=== PATIENT | male | born 1950 | race Caucasian/White ===

== ENCOUNTER → 2023-07-06 07:50 | Outpatient (REF) | payer MEDICARE, SELFPAY ==
[2023-07-06 08:19] LABS: % Basophils 0.7 % (0-2); % Eosinophils 4.2 % (0-6); % Immature Granulocytes 0.3 % (0-0.5); % Lymphocytes 49.5 % (20.5-51.1); % Monocytes 10.3 % (1.7-9.3); Absolute Basophils 0.1 10^3/uL (0-0.2); Absolute Eosinophils 0.4 10^3/uL (0-0.7); Absolute Lymphocytes 4.5 10^3/uL (1.2-3.4); Absolute Monocytes 0.9 10^3/uL (0.1-0.6); Absolute Neutrophils 3.2 10^3/uL (1.4-6.5); Hematocrit 41.6 % (39.0-52.0); Hemoglobin 14.5 g/dL (13.0-18.0); Mean Corp Hgb Conc. 34.9 g/dL (33.0-37.0); Mean Corpuscular Hgb 32.4 pg (27.0-31.0); Mean Corpuscular Volume 92.9 fL (80.0-94.0); Mean Platelet Volume 11.4 fL (7.4-10.4); Nucleated Red Blood Cells % 0 % (-); Platelet Count 196 10^3/uL (130-400); Red Blood Cell Count 4.48 10^6/uL (4.70-6.10); Red Cell Dist. Width 12.7 % (11.5-14.5)
[2023-07-06 08:48] LABS: ALT (SGPT) 33 U/L (0-50); AST (SGOT) 45 U/L (17-59); Alkaline Phosphatase 55 U/L (38-126); Blood Urea Nitrogen 13 mg/dl (9-20); Carbon Dioxide 27 mmol/L (22-30); Chloride 104 mmol/L (98-107); Glucose 110 mg/dl (70-99); HDL Cholesterol 48 mg/dl; LDL Cholesterol, Calculated 93 mg/dl; Potassium 4.4 mmol/L (3.5-5.1); Sodium 139 mmol/L (135-145); Total Bilirubin 1.3 mg/dl (0.2-1.3); Total Cholesterol 183 mg/dl (50-199); Triglyceride 211 mg/dl (10-149); Very Low Density Lipoprotein 42 mg/dl (0-30); eGFR > 60.00
[2023-07-06 08:59] LABS: Glycohemoglobin (HgbA1c) 5.8 % (4.0-5.6)
[2023-07-06 09:10] LABS: PSA, Total - Screen 1.74 ng/ml (0.0-4.0)
== END ==
LOC: REG 07:50
PROVIDERS: ATTENDING PHYSICIAN Nurse Practitioner Adult Health
DX: I10 Essential (primary) hypertension (principal); E78.00 Pure hypercholesterolemia, unspecified; R73.03 Prediabetes; Z12.5 Encounter for screening for malignant neoplasm of prostate
CPT/HCPCS: 36415; 80053; 80061; 83036; 85025; G0103

== ENCOUNTER → 2023-09-16 08:59 | Outpatient (REF) | payer MEDICARE, SELFPAY | LOC: RCS 08:59 | PROVIDERS: ATTENDING PHYSICIAN Internal Medicine Cardiovascular Disease; FAMILY PHYSICIAN Internal Medicine | DX: I35.0 Nonrheumatic aortic (valve) stenosis (principal) | CPT/HCPCS: 93306 ==

== ENCOUNTER → 2023-11-14 06:17 | Day surgery (SDC) | payer MEDICARE, SELFPAY | LOC: GI 06:17 | PROVIDERS: ATTENDING PHYSICIAN Internal Medicine | DX: Z12.11 Encounter for screening for malignant neoplasm of colon (principal); D12.3 Benign neoplasm of transverse colon; D12.5 Benign neoplasm of sigmoid colon; K63.5 Polyp of colon; K57.30 Diverticulosis of large intestine without perforation or abscess without bleeding; K63.89 Other specified diseases of intestine; K64.8 Other hemorrhoids | CPT/HCPCS: 45385; 45380; 88305 ==

== ENCOUNTER → 2024-01-04 08:14 | Outpatient (REF) | payer MEDICARE, SELFPAY | LOC: RCS 08:14 | PROVIDERS: ATTENDING PHYSICIAN Internal Medicine Cardiovascular Disease; FAMILY PHYSICIAN Internal Medicine | DX: I35.0 Nonrheumatic aortic (valve) stenosis (principal) | CPT/HCPCS: 93306 ==

== ENCOUNTER → 2024-01-11 07:44 | Outpatient (REF) | payer MEDICARE, SELFPAY ==
[2024-01-11 10:51] LABS: Glycohemoglobin (HgbA1c) 5.8 % (4.0-5.6)
[2024-01-11 10:54] LABS: ALT (SGPT) 34 U/L (0-50); AST (SGOT) 53 U/L (17-59); Albumin 4.5 g/dl (3.5-5.0); Alkaline Phosphatase 60 U/L (38-126); Blood Urea Nitrogen 11 mg/dl (9-20); Calcium 10.1 mg/dl (8.4-10.2); Carbon Dioxide 27 mmol/L (22-30); Chloride 106 mmol/L (98-107); Glucose 102 mg/dl (70-99); HDL Cholesterol 43 mg/dl; LDL Cholesterol, Calculated 96 mg/dl; Potassium 4.4 mmol/L (3.5-5.1); Sodium 144 mmol/L (135-145); Total Bilirubin 1.8 mg/dl (0.2-1.3); Total Cholesterol 187 mg/dl (50-199); Total Protein 7.4 g/dl (6.3-8.2); Triglyceride 244 mg/dl (10-149); Very Low Density Lipoprotein 48 mg/dl (0-30); eGFR > 60.00
== END ==
LOC: REG 07:44
PROVIDERS: ATTENDING PHYSICIAN Nurse Practitioner Adult Health
DX: I10 Essential (primary) hypertension (principal); E78.00 Pure hypercholesterolemia, unspecified; R73.03 Prediabetes
CPT/HCPCS: 36415; 80053; 80061; 83036

== ENCOUNTER → 2024-03-26 14:05 | Outpatient (REF) | payer MEDICARE, SELFPAY | LOC: RAD 14:05 | PROVIDERS: ATTENDING PHYSICIAN Nurse Practitioner Adult Health; FAMILY PHYSICIAN Internal Medicine | DX: M25.561 Pain in right knee (principal) | CPT/HCPCS: 73564 ==

== ENCOUNTER 2024-04-13 09:49 | Outpatient (RCR) | payer MEDICARE, SELFPAY | END 2024-04-13 23:59 | disposition home or self-care (01) | LOC: RPT 09:49 | PROVIDERS: ATTENDING PHYSICIAN Nurse Practitioner Adult Health | DX: M25.561 Pain in right knee (principal); Z73.6 Limitation of activities due to disability | CPT/HCPCS: 97110; 97112; 97140; 97162 ==

== ENCOUNTER 2024-04-27 09:54 | Outpatient (RCR) | payer MEDICARE, SELFPAY | END 2024-04-27 11:24 | disposition home or self-care (01) | LOC: RPT 09:54 | PROVIDERS: ATTENDING PHYSICIAN Nurse Practitioner Adult Health | DX: M25.561 Pain in right knee (principal); Z73.6 Limitation of activities due to disability | CPT/HCPCS: 97110; 97112 ==

== ENCOUNTER → 2024-07-09 07:48 | Outpatient (REF) | payer MEDICARE, SELFPAY ==
[2024-07-09 08:39] LABS: % Basophils 0.7 % (0-2); % Eosinophils 3.5 % (0-6); % Immature Granulocytes 0.3 % (0-0.5); % Monocytes 11.9 % (1.7-9.3); % Neutrophils 37.6 % (42.2-75.2); Absolute Basophils 0.1 10^3/uL (0-0.2); Absolute Eosinophils 0.4 10^3/uL (0-0.7); Absolute Lymphocytes 4.9 10^3/uL (1.2-3.4); Absolute Monocytes 1.3 10^3/uL (0.1-0.6); Hematocrit 42.6 % (39.0-52.0); Hemoglobin 14.4 g/dL (13.0-18.0); Mean Corp Hgb Conc. 33.8 g/dL (33.0-37.0); Mean Corpuscular Hgb 31.6 pg (27.0-31.0); Mean Corpuscular Volume 93.4 fL (80.0-94.0); Mean Platelet Volume 11.3 fL (7.4-10.4); Nucleated Red Blood Cells % 0 % (-); Platelet Count 199 10^3/uL (130-400); Red Blood Cell Count 4.56 10^6/uL (4.70-6.10); Red Cell Dist. Width 12.8 % (11.5-14.5); White Blood Cell Count 10.7 10^3/uL (4.8-10.8)
[2024-07-09 09:15] LABS: ALT (SGPT) 38 U/L (0-50); AST (SGOT) 49 U/L (17-59); Albumin 4.4 g/dl (3.5-5.0); Alkaline Phosphatase 70 U/L (38-126); Blood Urea Nitrogen 15 mg/dl (9-20); Carbon Dioxide 24 mmol/L (22-30); Chloride 106 mmol/L (98-107); Glucose 112 mg/dl (70-99); HDL Cholesterol 47 mg/dl; LDL Cholesterol, Calculated 104 mg/dl; Potassium 4.3 mmol/L (3.5-5.1); Sodium 141 mmol/L (135-145); Total Bilirubin 1.4 mg/dl (0.2-1.3); Total Cholesterol 197 mg/dl (50-199); Total Protein 7.4 g/dl (6.3-8.2); Triglyceride 231 mg/dl (10-149); Very Low Density Lipoprotein 46 mg/dl (0-30); eGFR > 60.00
[2024-07-09 09:45] LABS: PSA, Total - Screen 1.94 ng/ml (0.0-4.0); TSH Reflex To Free T4 1.64 uIU/ml (0.47-4.68)
[2024-07-09 09:54] LABS: Glycohemoglobin (HgbA1c) 5.7 % (4.0-5.6)
== END ==
LOC: REG 07:48
PROVIDERS: ATTENDING PHYSICIAN Nurse Practitioner Adult Health; FAMILY PHYSICIAN Internal Medicine
DX: I10 Essential (primary) hypertension (principal); E78.00 Pure hypercholesterolemia, unspecified; R73.03 Prediabetes; Z12.5 Encounter for screening for malignant neoplasm of prostate; Z00.00 Encounter for general adult medical examination without abnormal findings
CPT/HCPCS: 36415; 80053; 80061; 83036; 84443; 85025; G0103

== ENCOUNTER → 2024-07-11 08:46 | Outpatient (REF) | payer MEDICARE, SELFPAY | LOC: RCS 08:46 | PROVIDERS: ATTENDING PHYSICIAN Internal Medicine Cardiovascular Disease; FAMILY PHYSICIAN Internal Medicine | DX: I35.0 Nonrheumatic aortic (valve) stenosis (principal) | CPT/HCPCS: 93306 ==

== ENCOUNTER 2024-07-27 07:38 | Day surgery (SDC) | payer MEDICARE, SELFPAY ==
--- NOTE | 2024-07-26 08:32 | CONSULT.STRU ---
Consultation
-
Date/Time Consultation Requested: 07/27/2024
Date/Time Consultation Performed: 07/27/2024
Requesting Provider: Barbara Dominguez MD
Performing Provider: JEOVANNY Corona
Reason for Consultation: /TAVR
Patient History
Physicians
Family Physician: Esdras Cullen MD
Outpatient General Manager Food: Ronn Hare MD
Primary General Manager Food: Ronn Hare MD
History of Present Illness
Mr. Castano is a very pleasant 73 yom with a past medical history significant for , HTN, hypercholesterolemia, tobacco use, and hypertriglyceridemia. His echocardiogram from 07/11/2024 is notable for EF 57% AV P/M 87/59, MANISH 0.8, Pk michael: 4.67, mild
, MAC with trace MR, trace TR, PAP 25-30. From a symptomatology standpoint, patient describes no symptoms. He denies TAVAREZ, dizziness, lightheadedness, chest pain, or edema. Mr. Castano states his activity is unchanged from one year ago. Discussed
the pathophysiology and treatment options of including SAVR and TAVR. Explained the evaluation process comprising of lab work, TAVR CT scan, CT surgery consult, dental clearance and a heart team discussion. TAVR booklet, prescriptions,
appointments, and contact information given to patient. Allowed for and answered questions at bedside.
Past Medical History
Past Medical History: HTN, Hypercholesterolemia, Valvular Disease (aortic stenosis) and Other (diverticulitis, tobacco abuse)
Past Surgical History
Past Surgical History: Abdominal (colon resection) and Appendectomy
Dental History
Dr. Clark DDS. Patient states he is up to date.
Family History
Mother: N/A
Father: N/A
Social History
Alcohol: Occasional
Drug: None
Tobacco: Smoker
Allergies
Allergy/AdvReac Type Severity Reaction Status Date / Time
NKA - No Known Allergies Allergy Unknown Unknown Uncoded 03/08/14 22:50
Home Medications
�Medication �Instructions �Recorded �Confirmed �Type
lisinopril 20 mg tablet 20 mg PO DAILY 03/08/14 03/02/22 History
acetaminophen 650 mg 1,300 mg PO QPM 03/02/22 03/02/22 History
tablet,extended release
eebzhjjb-cl-uhdzz 300 mcg-K 60 1 tab PO DAILY 03/02/22 03/02/22 History
mcg-lycop 600 mcg-lutein 300 mcg
tablet (Centrum Silver Men)
omega-3 fatty acids 1 cap PO BID 03/02/22 03/02/22 History
sildenafil (pulm.hypertension) 20 20 mg PO QPM 03/02/22 03/02/22 History
mg tablet
STS%
STS %: 1.12
Review of Systems
-
History Source: Patient
General: Reports No Symptoms
HEENT: Reports No Symptoms
Respiratory: Reports No Symptoms
Cardiac: Reports No Symptoms
Abdomen/GI: Reports No Symptoms
: Reports No Symptoms
Musculoskeletal: Reports No Symptoms
Skin: Reports No Symptoms
Neurological: Reports No Symptoms
Vascular: Reports No Symptoms
Physical Exam
Labs
07/09/2024
HH: 14.4/42.6
BUN/Creatinine: 15/1.0
GFR >60
Diagnostic Studies
ECHOCARDIOGRAM 07/11/2024:
CONCLUSIONS
Normal left ventricular size and systolic function. No regional wall motion
abnormalities are seen. LV ejection fraction is 57% by Perera's method of
discs. Moderate concentric left ventricular hypertrophy.
Normal right ventricular size and function.
Trace mitral regurgitation.
Severe aortic stenosis. Peak/mean gradients across the aortic valve are 87/59.
The aortic valve by the Continuity equation is calculated at .8 cm. Mild
aortic regurgitation.
Trace tricuspid regurgitation. Estimated pulmonary artery pressure of 25-30
mmHg assuming a right atrial pressure of 3 mmHg.
Compared to prior study 01/04/2020 4 aortic valve gradients have increased
further from prior peak/mean 78/51 mmHg to now 87/59 mmHg.
Procedure Type:�Isolated AVR
Perioperative Outcome Estimate %
Operative Mortality 1.12%
Morbidity & Mortality 6.96%
Stroke 0.858%
Renal Failure 1.24%
Reoperation 3.29%
Prolonged Ventilation 3.27%
Deep Sternal Wound Infection 0.087%
Long Hospital Stay (>14 days) 2.27%
Short Hospital Stay (<6 days)* 63.3%
Exam
General: Well Developed, Well Nourished, No Apparent Distress and Comfortable
HEENT: Normocephalic
Neck: Trachea Midline
Respiratory: Clear
Cardiac: Regular Rhythm and Murmur (III/ stew)
GI: Soft and Non Tender
Rectal: Deferred by Provider
Skin: Warm and Dry
Neuro: Awake, Alert and AO x 3
Psych: Calm
Assessment / Plan
-
Aortic stenosis
Continue TAVR evaluation
Trend creatinine after contrast administration (Rx given)
TAVR CT scan (08/09)
CT surgical consult (MPT 08/14)
KCCQ12 and frailty testing at consult
Dental clearance
Continue aspirin
Heart team discussion
Data Reviewed
-
EKG: Tracing Personally Visualized and interpreted (NSR )
Vehicle Trimmer: Discussed with Physician
Echo: Report Reviewed by me and Discussed with Physician
Labs: Labs Reviewed by me
Old Records: Reviewed (Dr. Hare's office note)
Total Time Spent with Patient (in minutes): 45
[2024-07-27] VITALS (13 sets, daily range): BP systolic 106–133; BP diastolic 48–82; BMI 28.7
--- NOTE | 2024-07-27 16:41 | ITS.CL.CATH ---
Vehicle Detailer - Catheterization
Cardiac Catheterization
Procedure Report:
LEFT HEART CATHETERIZATION
Date of Procedure: July 27, 2024
Referring: Ronn Hare MD
PROCEDURES:
1. Coronary angiogram.
2. Right heart catheterization.
3. Ultrasound-guided access.
4. Moderate sedation
INDICATION: Pre-TAVR
ACCESS:
1. Right radial artery, 6 Turkish sheath, under ultrasound guidance
2. Right brachial vein, 6 Turkish sheath, under ultrasound guidance
Ultrasound was utilized for vascular access. The radial artery and brachial vein were visualized under ultrasound, and the vessel was patent and the artery pulsatile. The images were stored permanently in the patient's medical record. Under
direct ultrasound guidance, 6 Turkish sheaths were inserted into the artery and the vein, respectively using a micropuncture kit through a modified Seldinger technique.
HEMODYNAMICS : (mmHg)
RA (m) : 10
RV (s/d,m) : 27/7, 11
PA (s/d, m) : 31/15, 21
PCWP (m) : 13
PA saturation: 69.3% on room air
AO saturation: 95.5% on room air
SVC saturation: 72% on room air
Cardiac Output : 5.41 L/min
Cardiac Index : 2.59 L/min/m-2
Systemic vascular resistance: 1049 dsc^(-5)
Pulmonary vascular resistance: 1.48 khalil unit
Heart rate: 88 bpm
AO (s/d) : 114/69
CORONARY FINDINGS: Moderate to severely tortuous coronary arteries.
DOMINANCE: Right
LEFT MAIN: The left main artery is a large-caliber vessel which gives rise to the left anterior descending artery and the left circumflex artery. There is minimal luminal irregularities.
LEFT ANTERIOR DESCENDING: The left anterior descending artery is a large-caliber vessel which gives rise to 1 major diagonal branch as it courses to the anterior interventricular groove towards the apex. There is minimal luminal irregularities.
CIRCUMFLEX: Left circumflex artery is a large-caliber vessel which gives rise to 1 major large caliber obtuse marginal branch and the left posterolateral branch. There is minimal luminal irregularities.
RIGHT CORONARY ARTERY: The right coronary artery is a medium caliber dominant vessel which is rise to the right posterior descending artery. It is moderately tortuous with minimal luminal irregularities.
SEDATION: 21 minutes of procedural sedation was utilized. An independent medical policy specialist was present to assist with and help manage the patient's level of consciousness and physiologic status.
RADIATION SUMMARY: Fluoro Time (min): 3.1, Dose (mGy): 349.03, DAP (Gy.cm2) : 26.97
Closure Device: Vascular band over right radial artery, 10 cc of air. Manual pressure was held over the right brachial venous access site with successful hemostasis.
CONCLUSIONS
1. Moderate to severely tortuous coronary arteries.
2. No obstructive coronary artery disease.
3. Mildly elevated right-sided filling pressures with normal PCWP and normal cardiac output.
4. Known severe to critical aortic stenosis with mean transaortic gradient of 59 mmHg on most recent echocardiogram.
RECOMMENDATIONS
1. Proceed with workup for TAVR versus SAVR by pursuing a CT angiogram of chest, abdomen and pelvis per TAVR protocol CT surgery consult followed by discussion and review of data at the structural heart meeting.
2. Continued aggressive management of cardiovascular risk factors.
3. Wean radial band per protocol.
Copy to: Ronn Hare MD
Barbara Dominguez MD, [facility], [facility]
== END 2024-07-27 12:45 | disposition home or self-care (01) ==
LOC: CATH 07:38
PROVIDERS: ATTENDING PHYSICIAN Internal Medicine Interventional Cardiology; FAMILY PHYSICIAN Internal Medicine; OTHER PHYSICIAN Internal Medicine Cardiovascular Disease
DX: I35.0 Nonrheumatic aortic (valve) stenosis (principal); E78.2 Mixed hyperlipidemia; I11.9 Hypertensive heart disease without heart failure; F17.210 Nicotine dependence, cigarettes, uncomplicated; Z90.49 Acquired absence of other specified parts of digestive tract; E78.1 Pure hyperglyceridemia
CPT/HCPCS: 99152; 76937; 93456; C1894; Q9967

== ENCOUNTER → 2024-08-02 09:32 | Outpatient (REF) | payer MEDICARE, SELFPAY ==
[2024-08-02 11:50] LABS: Blood Urea Nitrogen 14 mg/dl (9-20); Calcium 10.1 mg/dl (8.4-10.2); Carbon Dioxide 27 mmol/L (22-30); Chloride 103 mmol/L (98-107); Glucose 165 mg/dl (70-99); Potassium 4.6 mmol/L (3.5-5.1); Sodium 140 mmol/L (135-145); eGFR > 60.00
== END ==
LOC: REG 09:32
PROVIDERS: ATTENDING PHYSICIAN Nurse Practitioner Acute Care; FAMILY PHYSICIAN Internal Medicine
DX: I35.0 Nonrheumatic aortic (valve) stenosis (principal)
CPT/HCPCS: 36415; 80048

== ENCOUNTER → 2024-08-09 09:29 | Outpatient (REF) | payer MEDICARE, SELFPAY | LOC: RAD 09:29 | PROVIDERS: ATTENDING PHYSICIAN Nurse Practitioner Acute Care; FAMILY PHYSICIAN Internal Medicine | DX: I35.0 Nonrheumatic aortic (valve) stenosis (principal) | CPT/HCPCS: 74174; 75572; Q9967 ==

== ENCOUNTER → 2024-08-21 13:07 | Outpatient (REF) | payer MEDICARE, SELFPAY | LOC: RAD 13:07 | PROVIDERS: ATTENDING PHYSICIAN Nurse Practitioner Adult Health | DX: I35.0 Nonrheumatic aortic (valve) stenosis (principal) | CPT/HCPCS: 75572; Q9967 ==

== ENCOUNTER 2024-10-11 07:35 | Inpatient (IN) | payer MEDICARE, SELFPAY ==
[2024-10-03 08:50] VITALS: BMI 30.5
[2024-10-03 09:10] LABS: % Basophils 0.6 % (0-2); % Eosinophils 3.8 % (0-6); % Immature Granulocytes 0.3 % (0-0.5); % Lymphocytes 43.6 % (20.5-51.1); % Monocytes 11.6 % (1.7-9.3); % Neutrophils 40.1 % (42.2-75.2); Absolute Basophils 0.1 10^3/uL (0-0.2); Absolute Eosinophils 0.3 10^3/uL (0-0.7); Absolute Lymphocytes 3.8 10^3/uL (1.2-3.4); Absolute Neutrophils 3.5 10^3/uL (1.4-6.5); Hematocrit 41.8 % (39.0-52.0); Hemoglobin 14.2 g/dL (13.0-18.0); Mean Corpuscular Hgb 31.1 pg (27.0-31.0); Mean Corpuscular Volume 91.7 fL (80.0-94.0); Mean Platelet Volume 11.7 fL (7.4-10.4); Nucleated Red Blood Cells % 0 % (-); Platelet Count 172 10^3/uL (130-400); Red Blood Cell Count 4.56 10^6/uL (4.70-6.10); Red Cell Dist. Width 13.9 % (11.5-14.5); White Blood Cell Count 8.7 10^3/uL (4.8-10.8)
[2024-10-03 09:11] LABS: Urine Albumin 1+ (Neg - Trace); Urine Bilirubin Negative (Negative); Urine Character Clear (Clear); Urine Color Yellow; Urine Glucose Negative (Negative); Urine Ketone Negative (Negative); Urine Leukocyte Negative (Negative); Urine Nitrite Negative (Negative); Urine Occult Blood 1+ (Negative); Urine Urobilinogen Negative (Neg - 1+)
[2024-10-03 09:19] LABS: INR 1.02; PT 13.9 Sec (11.4-14.6)
[2024-10-03 09:20] LABS: APTT 28.9 Sec (23.4-35.0)
[2024-10-03 09:22] LABS: Urine Bacteria Few (Negative); Urine Mucus Few; Urine Red Blood Cell 0-2 /HPF (0-2); Urine Squamous Cell 0-2 /LPF (Few)
[2024-10-03 09:42] LABS: NT-proBNP 91.6 pg/ml
[2024-10-03 10:01] LABS: ALT (SGPT) 47 U/L (0-50); AST (SGOT) 74 U/L (17-59); Albumin 4.3 g/dl (3.5-5.0); Alkaline Phosphatase 62 U/L (38-126); Blood Urea Nitrogen 15 mg/dl (9-20); Calcium 9.4 mg/dl (8.4-10.2); Carbon Dioxide 23 mmol/L (22-30); Chloride 113 mmol/L (98-107); Direct Bilirubin 0.3 mg/dl (0.0-0.4); Estimated Creatinine Clearance 72 ml/min; Glucose 101 mg/dl (70-99); Potassium 4.6 mmol/L (3.5-5.1); Sodium 142 mmol/L (135-145); Total Protein 7.5 g/dl (6.3-8.2); eGFR > 60.00
--- NOTE | 2024-10-03 10:05 | CM ---
Met with Mr. ad Mrs. Castano in [facility]. He states prior to admission he resides with his spouse in a two story home with one step to enter. He states he has a full flight of steps to get to bedroom/full bathroom. He states he has a powder room on the
first floor. He states prior to admission he was independent with ambulation and adls. He states he does not have any DME in the home. He states he has a prescription plan and uses [facility].His spouse states she will be home to assist in his
care if needed. The discharge plan is to return home with his spouse and a home visit by the Transitional Care Nurse when medically stable.
We reviewed pre-op and post-op routines. We reviewed the shower instructions. He has the soap and the written instructions. He already has the TAVR Educational Booklet. We also reviewed restrictions including lifting and driving restrictions.
We discussed a home visit by the Transitional Care Nurse. He is agreeable to a home visit. The plan is for TAVR on September.
[2024-10-03 11:20] LABS: Glycohemoglobin (HgbA1c) 5.8 % (4.0-5.6)
--- NOTE | 2024-10-03 15:33 | HPS.HSE ---
Family Physician
-
Family Physician: Esdras Cullen
Cardiology: Ronn Hare
Chief Complaint
-
Pre-operative history and physical
History of Present Illness
Mr. Castano is a very pleasant 73 yom with a past medical history significant for , HTN, hypercholesterolemia, tobacco use, and hypertriglyceridemia. His echocardiogram from 07/11/2024 is notable for EF 57% AV P/M 87/59, MANISH 0.8, Pk michael: 4.67, mild
, MAC with trace MR, trace TR, PAP 25-30. From a symptomatology standpoint, patient describes no symptoms. He denies TAVAREZ, dizziness, lightheadedness, chest pain, or edema. However, his states she has noticed that he is SOB after climbing
stairs. Patient also states he takes naps during the day and his has noticed he has been napping more frequently. Mr. Castano states his activity is unchanged from one year ago.
Reviewed risks of TAVR including PPM, bleeding and stroke. Allowed for and answered questions. Patient to be a 0730 arrival on 10/11. He will continue his aspirin including taking the morning of his TAVR. He will hold his fish oil starting now. He is
aware he will receive a call next Tue. to confirm arrival time and answer any questions.
Medical History
Past Medical History
Past Medical History: Reports HTN, Valvular Disease (Bicuspid AV) and Other (diverticulitis, BCC left LE, pre-diabetic)
Past Surgical History: Reports Appendectomy and Other (colon resection)
Social History
Tobacco: Smoker
Alcohol: Occasional
Drug: None
Personal:
Living: With Family
Employment: Retired
Family History
Family History: Not pertinent
Allergies / Home Medications
Allergies reflects when Allergies were last updated in [facility].
Home Medications with original date entered in [facility]
Allergy/Medication List:
Allergies:
shellfish - nausea/vomitting
Medications:
Aspirin 81(Aspirin) 81 MG Tablet Chewable 1 tablet Orally Once a day.
Fish Oil 1000 MG Capsule 1 capsule Orally Twice a day.
Lisinopril 20 MG Tablet TAKE 1 TABLET ONCE DAILY.Multiple Vitamin Tablet 1 tablet Orally Once a day.
Sildenafil Citrate 20 MG Tablet TAKE 1 TABLET BY MOUTH EVERY DAY NEEDED.
Tylenol Arthritis Pain.
Valtrex(valACYclovir HCl) 1 GM Tablet 2 tablets prn Orally twice a day x one day.
Review of Systems
-
History Source: Patient
Constitutional: Reports No Symptoms
EENT: Reports No Symptoms
Respiratory: Reports No Symptoms
Cardiac: Reports No Symptoms
Abdomen/GI: Reports No Symptoms
: Reports No Symptoms
Musculoskeletal: Reports No Symptoms
Skin: Reports No Symptoms
Neurological: Reports No Symptoms
Endocrine: Reports No Symptoms
Hematologic/Lymphatic: Reports No Symptoms
Psych: Reports No Symptoms
Physical Exam
Physical Exam
General: Well Developed, Well Nourished and No Apparent Distress
HEENT: NormoCephalic and PERRLA
Respiratory: Clear
Cardiac: S1/S2, Irregular Rhythm and Murmur (Grade II/ TAYLER); No Peripheral Edema
Breast: Deferred by me
GI: Soft, Non Tender, Non Distended and Normal Bowel Sounds
Rectal: Deferred by Provider
Genito-urinary: Deferred by me
Musculoskeletal: No Edema and Normal Gait & Station
Skin: Warm and Dry
Neuro: AO x 3 and Nonfocal/grossly intact
Psych: Calm
Laboratory Results
-
10/03/24 08:43
10/03/24 08:43
Laboratory Results
PT 13.9 Sec (11.4-14.6) 10/03/24 08:43
INR 1.02 10/03/24 08:43
APTT 28.9 Sec (23.4-35.0) 10/03/24 08:43
Total Bilirubin 2.0 mg/dl (0.2-1.3) H 10/03/24 08:43
AST 74 U/L (17-59) H 10/03/24 08:43
ALT 47 U/L (0-50) 10/03/24 08:43
Alkaline Phosphatase 62 U/L (38-126) 10/03/24 08:43
Data Reviewed
-
Diagnostic Radiology: Report Reviewed by me
CT Scan: Report Reviewed by me and Discussed with Physician
Medical Tests (Nuc Med, Echo, EKG etc): Report Reviewed by me
Lab Data: Labs Reviewed by me
Old Records: Reviewed
Impression/Plan
-
IMPRESSION:
Severe Aortic Stenosis
PLAN:
-Proceed with TAVR utilizing a 26mm S3 Resilia Valve via transfemoral access
-POD #06/14 echocardiogram
-Cardiac rehab consult
-Continue ASA daily
[2024-10-11] VITALS (24 sets, daily range): BP systolic 90–142; BP diastolic 50–85
--- NOTE | 2024-10-11 09:13 | W.CVOR.SURPR ---
CVOR Surgeon Immed Pre Op
-
I have examined this patient prior to performance of the scheduled procedure.
The patient's condition is unchanged from the time of the dictated/written History and
Physical and the patient is able to undergo the scheduled procedure.
--- NOTE | 2024-10-11 11:25 | CM ---
Chart reviewed. Patient is in the OR today. Patient is independent of ADLS, lives with his in a 2 STH, 1 BRYANT, 0 DME. Plan is for the patient to return home with CT Transitional RN. CM to follow
--- NOTE | 2024-10-11 11:28 | W.IMMPOSTOP ---
Surgical Immed Post Op Note
-
[id number]
STRUCTURAL HEART PROCEDURE NOTE: TAVR
Preoperative Dx:
Severe aortic stenosis (P/M: 87/59; MANISH 0.8, Creative Perfumer 4.67)
HTN
BCC of left LE
Diverticulitis w/ Hx of colon resection 1999
Appendectomy
Postoperative Dx:
Same
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
Procedures:
1) L TRAIN PLANNER access w/ tactile, U/S, and fluoroscopic guidance, micropuncture technique, limited angiography, 6Fr sheath placement
2) L CFV access w/ U/S and fluoroscopic guidance, long 6Fr sheath placement
3) R TRAIN PLANNER access w/ tactile, U/S, and fluoroscopic guidance, micropuncture technique, limited angiography, 6Fr sheath placement
4) Placement of temporary RV pacing wire, threshold testing
5) Placement of pigtail catheter in RCC w/ limited aortography x 2 w/ confirmation of co-planar valve deployment angles
6) Placement of perclose sutures x 2 into R TRAIN PLANNER; 8Fr sheath placement
7) Placement of Argueta E-sheath via R TRAIN PLANNER (systemic heparinization)
8) Wire purchase across stenotic AV (AL-1, soft-tip straight, LVEDP assessment, extra-stiff wire)
9) R TF TAVR w/ placement of 26mm FLO 3 valve
10) Completion aortography (90/10; no AI)
11) Completion TTE (mean gradient 9mmHg, no AI/PVL)
12) Removal of valve delivery system & Argueta E-sheath w/ R TRAIN PLANNER mgmt w/ perclose sutures x 2; manual pressure
13) Completion R ileofemoral angiography
14) Removal of temporary pacing wire
15) Removal of L TRAIN PLANNER 6Fr sheath w/ mgmt w/ 6Fr angioseal; manual pressure (protamine)
16) Removal of L CFV 6Fr sheath w/ mgmt w/ manual pressure
Coordinate Measuring Equipment Operator:
Dr. Arnaldo Carrillo
Cardiac Surgeon:
Dr. Choco Hermosillo
Anesthesia:
MAC & local to B/L groins
Implants:
Argueta Lifesciences, FLO 3, 26mm RESILIA valve; [id number]
Perclose x 2 to R TRAIN PLANNER
6Fr angioseal x 1 to L TRAIN PLANNER
Complications:
None
Transient BBB - resolved spontaneously
Cath Data:
Start 1028hrs, Deploy: 1109hrs, End: 1125hrs
FT: 7.9min, mGy: 640.10, DAP: 59.0450, Contrast: 118
Post-TTE: no AI/PVL, mean gradient 9mmHg
Condition:
Stable/guarded to recovery
--- NOTE | 2024-10-11 12:12 | W.PN.UPDATE ---
Update Note
Progress Note Update
Reviewed Mr. Castano with the heart team in the preTAVR SDM meeting and confirmed a 26mm S3 via right transfemoral access. Patient will resume aspirin post TAVR. LVEDP 28mmHg. #26mmS3 (serial# [id number]) successfully deployed via right transfemoral
access. Post implant MG 9mmHg.
[2024-10-11 12:59] LABS: ACT-LR - POC > 397 Seconds (116-155)
--- NOTE | 2024-10-11 14:23 | PTCARENOTE ---
Received the patient from PACU at 1310 after TAVR procedure. Patient is AAO, lying flat in bed, aware that he must maintain this position until 1530. Bilateral groin dressings are dry and intact with strong pedal pulses. IV levophed is infusing at
2mcg/min, monitoring VS, BP remains > 90. Neuro status is within normal limits. SR on the monitor, with 1st degree HB and occasional PVC's. is at the bedside, call monterroso in reach.
--- NOTE | 2024-10-11 15:23 | ITS.CL.TAVR ---
Medical Office Supervisor - TAVR Report
TAVR PRocedure
Procedure Report:
TRANSCATHETER AORTIC VALVE REPLACEMENT
Date of Procedure: October 11, 2024
Referring: Dr. Ronn Hare
Operators: Drs. Arnaldo Carrillo and Choco Hermosillo
PROCEDURE PERFORMED:
1. Ultrasound guidance was utilized to gain access in the left common femoral vein, left common femoral artery, and right common femoral artery
2. Successful placement of 26 mm Argueta Linda S3 aortic valve via right common femoral approach.
PREPROCEDURE NYHA CLASS: 3
DESCRIPTION OF PROCEDURE: The patient was referred for assessment of severe symptomatic aortic stenosis and following a comprehensive evaluation it was felt that transcatheter aortic valve replacement (TAVR) would be the most appropriate treatment.
Informed consent was obtained prior to the procedure. A 'time-out' was called and the procedural plan was verbally confirmed by anesthesia, surgery, perfusion, and tag and label cutter staff.
Arterial was obtained in the left common femoral artery using ultrasound guidance and micropuncture technique. A 6 Fr sheath was inserted. Ultrasound guidance was then utilized to gain access into the left common femoral vein and a 6 Fr sheath was
inserted. Attention was then turned to the right common femoral artery. Ultrasound guidance was utilized and access was obtained in the right common femoral artery using ultrasound guidance. Angiography through the micropuncture sheath revealed
appropriate positioning of both the right and left common femoral arteriotomy sites.
A transvenous pacemaker wire was then advanced from the left common femoral vein to the right ventricular apex where excellent pacing thresholds were obtained.
An angled pigtail catheter was then advanced through the left common femoral sheath and positioned in the proximal ascending thoracic aorta / right coronary cusp. Angiography was performed to define a coplanar angle facilitating positioning and
delivery of the TAVR device. PIEDRA 4/CAU 18 appear to be a reasonable coplanar angle.
Pre-closure of the right femoral arteriotomy was then performed using 2 Perclose devices and was followed by placement of an 8 Fr arterial sheath.
An AL-1 catheter was then advanced to the proximal descending thoracic aorta over 0.035' J-tipped guidewire. An Amplatz Extra-Stiff wire was then advanced through the AL-1 catheter to the proximal descending thoracic aorta. The AL-1 catheter was
removed and the supportive wire was utilized to facilitate delivery of the Argueta eSheath and dilator. Heparin, 7500 units, was administered and the ACT was monitored throughout the procedure.
The AL-1 catheter was then readvanced through the Argueta eSheath. The 0.035' stiff wire was allowed to drift across the aortic arch and the AL1 was positioned just above the aortic valve. The stenotic leaflets were probed with a Soft-tip Straight
wire. The aortic leaflets were crossed and the AL-1 catheter followed the Soft-tip Straight wire to the mid left ventricle. The wire was removed. Left ventricular end-diastolic pressures was measured at 26 mmHg.
An Amplatz Extra-Stiff wire with a generous curved tip was then advanced to the mid left ventricle. The AL-1 catheter was removed and the Amplatz wire was left in place in order to facilitate delivery of the Argueta delivery system. A 26 mm
Argueta LINDA S3 valve was brought to the table and the orientation of the valve on the balloon delivery system was confirmed by all operators. The LINDA S3 valve was advanced through the eSheath and into the proximal descending thoracic aorta.
The LINDA valve was centered on the delivery balloon and the entire system was retroflexed as across the aortic arch in an FRENCH projection. The LINDA S3 delivery system was then advanced across the stenotic aortic leaflets. The pusher was
retracted. Angiography confirmed appropriate positioning of the valve and rapid pacing was undertaken. The 26 mm LINDA S3 valve was deployed during rapid pacing. Valve deployment was uneventful. Aortography following valve deployment suggested
no aortic insufficiency while the wire was still across the valve in the left ventricle.
The post valve deployment transthoracic echocardiogram was notable for a mean gradient of 9 mmHg.
The Argueta valve delivery system was removed. The Argueta eSheath was removed and the Perclose knots were advanced to the arteriotomy site with excellent hemostasis. Angiography after the Perclose knots were advanced to the arteriotomy site and
demonstrated good distal runoff.
A 6 Kiswahili Angio-Seal was then utilized to obtain hemostasis in the left common femoral artery. The temporary pacemaker and 6 Fr sheath were removed and manual pressure was held over the 6 Kiswahili femoral venous access.
Protamine was administered to reverse the intravenous anticoagulant.
Fluoro Time: 7.9 min, Dose: 640 mGy, DAP : 59.0 Gy.cm2
CONCLUSIONS:
1. Severe symptomatic aortic stenosis. Successful deployment of a 26 mm LINDA S3 valve with no aortic insufficiency and a mean gradient post valve deployment of 9 mmHg
2. The right arteriotomy was closed with 2 Perclose devices and left arteriotomy site was closed with a 6 Fr Angio-Seal
Copy to: Dr. Ronn Hare
[2024-10-11] MEDS: ANCEF 5 IV (17:36)
[2024-10-11] MEDS: ANCEF 10 IV ×2 (17:36)
[2024-10-11] MEDS: FLUSH (NSS) 1 FLUSH IV (17:37)
--- NOTE | 2024-10-12 01:29 | PTCARENOTE ---
Assumed care of the pt @ 1900. Pt is AAOx3 SR with freq PVC's on the monitor. VSS b/l groin dressing c/d/i call monterroso within reach.
[2024-10-12 03:28] VITALS: BP 116/52
--- NOTE | 2024-10-12 03:36 | W.PN.CT ---
Today's Communication / Plan
-
- POD#1
-no issues overnight
-resume ASA
-review EKG with Cardiology
-obtain echo today
-discharge planning
Assessment / Plan
-
s/p R TF TAVR w/ placement of 26mm FLO 3 valve POD#1
-
-HTN
-hypercholesterolemia, hypertriglyceridemia
-tobacco use
-diverticulitis
-BCC left LE
-pre-diabetic
Subjective
Procedure
s/p R TF TAVR w/ placement of 26mm FLO 3 valve on 10/11/[address] Hermosillo
-
Date of Service: October 12, 2024
Objective Data
-
Lab Results
10/12/24 03:41
10/12/24 03:41
PT 13.9 Sec (11.4-14.6) 10/03/24 08:43
INR 1.02 10/03/24 08:43
APTT 28.9 Sec (23.4-35.0) 10/03/24 08:43
Vital Signs
Vital Signs
Temp Pulse Resp BP Pulse Ox
97.7 F 85 16 142/69 94
10/12/24 03:28 10/12/24 03:28 10/12/24 03:28 10/11/24 19:05 10/12/24 03:39
CT Intake/Output/Weight
10/11/24 10/11/24 10/12/24
06:59 18:59 06:59
Intake Total 240 / 240
Balance 240 / 240
SaO2: 94
Physical Exam
-
General: AOx3
Cardiovascular: Regular rate & rhythm
Respiratory: Clear
Incision: Dressing Intact
Extremities: No Edema
[2024-10-12 04:17] LABS: Hematocrit 41.2 % (39.0-52.0); Hemoglobin 14.2 g/dL (13.0-18.0); Mean Corp Hgb Conc. 34.5 g/dL (33.0-37.0); Mean Corpuscular Hgb 31.8 pg (27.0-31.0); Mean Corpuscular Volume 92.2 fL (80.0-94.0); Mean Platelet Volume 12.3 fL (7.4-10.4); Platelet Count 142 10^3/uL (130-400); Red Blood Cell Count 4.47 10^6/uL (4.70-6.10); Red Cell Dist. Width 13.2 % (11.5-14.5); White Blood Cell Count 14.1 10^3/uL (4.8-10.8)
[2024-10-12 04:39] LABS: Blood Urea Nitrogen 14 mg/dl (9-20); Calcium 9.5 mg/dl (8.4-10.2); Carbon Dioxide 26 mmol/L (22-30); Chloride 109 mmol/L (98-107); Estimated Creatinine Clearance 72 ml/min; Glucose 111 mg/dl (70-99); Magnesium 2.2 mg/dl (1.6-2.3); Potassium 4.8 mmol/L (3.5-5.1); Sodium 141 mmol/L (135-145); eGFR > 60.00
[2024-10-12 05:02] VITALS: BMI 30.5
[2024-10-12 05:27] LABS: Hepatitis C Antibody Negative (Negative)
[2024-10-12 07:31] VITALS: BP 136/63
--- NOTE | 2024-10-12 07:37 | W.DCSUMMARY ---
Discharge Summary
Discharge Data
Date of Admission: 10/11/24
Date of Discharge: 10/12/24
-
Pending Results: No
Hospital Course
Primary care physician: Esdras Cullen
Outpatient hat cutter: Ronn Hare
Inpatient consultants: [facility]
Procedures:
1. TAVR
Primary Diagnosis:
1. Bicuspid aortic valve with severe aortic stenosis
Secondary Diagnoses:
1. Diverticulitis s/p resection in 1999
2. Basal cell carcinoma of the left lower extremity
3. Hypertension
4. Pre-Diabetes (A1c)
5. Cirrhotic liver
6. Cholelithiasis
7. Tobacco abuse
8. Erectile dysfunction
HPI: 74-year-old male was electively admitted on 10/11/2024 for TAVR due to bicuspid aortic valve with aortic stenosis.
Hospital course: Patient underwent R TF TAVR #26mm FLO [address] Drs. Choco Hermosillo and Arnaldo Carrillo. Patient had no complications and returns to IVU in stable condition. Bilateral groin sites intact w/o erythema/hematoma. Morning ECG reported
sinus rhythm with occasional PVC. Chest x-ray recently without abnormality. TTE reported an EF of 60-65%, AV 19/9mmHg, no AI. HB 14.2 and creatinine 1.0 on day of discharge. Per cardiology, sildenafil is 'as needed' for ED, not pulmonary
hypertension.
Home medication changes:
Sildenafil prn, not daily
Discharge Plan
-
Patient Disposition: Home (Routine Discharge)
Discharge Diagnosis/Procedures: TAVR
Condition: Good
Diet: Low Cholesterol and Low Sodium
Activity: No strenuous activity
Driving Restrictions: No driving for 1 week
Bathing Restrictions: OK to Shower
Others Tests: Please call [facility] to schedule 30 day follow-up echocardiogram
Specialty Instructions: Weigh Daily- Call MD for wt gain/loss 3 lbs overnight/5 lbs in 1 week
Stand Alone Forms: DC Inst - TransFemoral (TAVR)
Referrals:
CT Transitional Care Nurse [Outside]
[facility]. Cardiac Rehab [Outside, Physical Medicine / Rehab] - 11/09/24 9:30 am
Referral Note: Cardiac Rehab Orientation appointment is on 11/09/2024 at 9:30 am
The Cardiac Rehab gym is located on the first floor of the [facility].
Lawson Cullen MD [Family Provider, Internal Medicine]
Karma Monreal CRNP [Specified Professional Personl, Cardiology] - 11/08/24 2:00 pm
Additional Discharge Medication Instructions: sildenafil is 'as needed'
Prescriptions:
Continued
acetaminophen 650 mg Tablet Extended Release
1,300 mg PO Q8H PRN (Reason: pain)
aspirin 81 mg Tablet
81 mg PO DAILY Qty: 0 0RF
Centrum Silver Men 300-600-300 mcg Tablet
1 tab PO DAILY Qty: 0 0RF
omega-3 fatty acids
1 cap PO DAILY Qty: 0 0RF
lisinopril 20 MG tablet
20 mg PO DAILY Qty: 0 0RF
Discontinued
sildenafil (pulm.hypertension) 20 mg Tablet
20 mg PO QPM
Discharge Orders:
Discharge Patient (As Directed); Ordered 10/12/24
Ordered By: Alba James
Care Plan Goals
Care Plan Goals:
Problem: Readiness for enhanced knowledge related to diagnosis and treatment plan
Goal: Understand your diagnosis and treatment plan needs, including medications if applicable.
Instructions: Know your diagnosis, underlying causes and treatment plan options, including medications if applicable. Consult with your health care team to learn about your diagnosis and treatment plan, including medications if applicable.
Discharge Date and Time
Print Language: JAPANESE
--- NOTE | 2024-10-12 07:41 | W.PN.CARDCBS ---
Addendum entered and electronically signed by Juliano Chambers MD 10/12/24 12:27:
I saw and examined the patient.
The Care Associate's note was reviewed and I agree with the note.
Comment: Briefly, 74-year-old man past medical history of severe aortic stenosis, PVCs, hypertension, hyperlipidemia who underwent TAVR 10/11/2024 for severe aortic stenosis
The patient was resting comfortably in the IVU this morning at the time my evaluation
Reports that he was ambulating the halls earlier today without significant symptoms
Telemetry shows sinus rhythm with PVCs
QRS duration is unchanged from baseline
Echo this a.m. with well-seated TAVR valve and no significant aortic regurgitation
Stable for discharge from my perspective
Discussed with patient's who was at bedside
Original Note:
Today's Communication / Plan
-
echo
ambulate
continue asa, lisinopril
likely for DC later today
Impression / Plan
-
Primary Travel Journalist: Dr. Hare
Assessment:
-Severe s/p R TF TAVR w/ placement of 26mm LINDA 3 valve 10/12/24
-PVCs/vent bigeminy
-HTN
-hypercholesterolemia/hypertriglyceridemia
-tobacco use
-diverticulitis s/p colon resection 1999
-BCC LLE
-pre-diabetic
ECHO 07/11/24: EF 57%, no RWMA, mod cLVH, trace MR, severe with peak/mean gradients 87/59mmHg, MANISH 0.8cm2, mild AR, trace TR, PAP 25-30mmHg
ECHO 10/11/24: EF 60-65%, s/p #26mm Linda 3 TAVR with peak/mean gradients 19/9mmHg, no AR
Plan:
-s/p R TF TAVR w/ placement of 26mm LINDA 3 valve 10/12/24
-hgb stable at 14.2. continue asa. B/L groin sites stable
-noted to have PVCs at times in pattern of vent bigeminy. upon review of last office EKG also with PVCs/bigeminy. patient asymptomatic. K/mag stable
-echo pending this AM
-BPs stable. continue OP lisinopril
-ambulate
-OP cardiac follow up arranged
-d/w nursing
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
Progress Note - Travel Journalist
Subjective
Date of Service: October 12, 2024
Denies chest pain, shortness of breath. Denies significant groin pain
Objective
Labs:
10/12/24 03:41
10/12/24 03:41
Labs
Hgb 14.2 g/dL (13.0-18.0) 10/12/24 03:41
Hct 41.2 % (39.0-52.0) 10/12/24 03:41
Plt Count 142 10^3/uL (130-400) 10/12/24 03:41
PT 13.9 Sec (11.4-14.6) 10/03/24 08:43
INR 1.02 10/03/24 08:43
APTT 28.9 Sec (23.4-35.0) 10/03/24 08:43
Sodium 141 mmol/L (135-145) 10/12/24 03:41
Potassium 4.8 mmol/L (3.5-5.1) 10/12/24 03:41
BUN 14 mg/dl (9-20) 10/12/24 03:41
Creatinine 1.0 mg/dL (0.7-1.3) 10/12/24 03:41
Glucose 111 mg/dl (70-99) H 10/12/24 03:41
Vital Signs and I&O:
Vital Signs
Temp Pulse Resp BP Pulse Ox
97.7 F 95 16 116/52 94
10/12/24 03:28 10/12/24 06:00 10/12/24 03:28 10/12/24 03:28 10/12/24 03:39
Vital Signs
Temp Pulse Resp BP Pulse Ox
97.7 F 95 16 116/52 94
10/12/24 03:28 10/12/24 06:00 10/12/24 03:28 10/12/24 03:28 10/12/24 03:39
Intake & Output
10/09/24 10/10/24 10/11/24 10/12/24
07:59 07:59 07:59 07:59
Intake Total 240 / 240
Balance 240 / 240
Physical Exam
Physical Exam
GEN: No distress, awake, alert, oriented x3
HEENT: supple, anicteric, mmm, eomi
LUNGS: CTA B/L, no wheezes
CV: Reg, S1/S2, no murmur
ABD: soft, BS+, NT/ND
EXT: No cyanosis, clubbing, edema
NEURO: Gross non-focal
SKIN: Warm, pink, dry. No rash. B/L groin sites c/d/i, NTTP, soft
[2024-10-12] MEDS: ZESTRIL 20 MG PO (09:22)
[2024-10-12] MEDS: LOW STRENGTH ASPIRIN 81 MG PO (09:22)
--- NOTE | 2024-10-12 10:05 | CM ---
Reviewed chart. Met with and Mrs. Castano to review discharge plans. He states he is feeling well and maybe able to go home soon. We reviewed a home visit by the Cardiothoracic Transitional Care Nurse. He is agreeable to home visit. Prior to
admission he resides with his spouse in a two story home with one steps to enter. He has a full flight of steps to get to bedroom/full bathroom. He has a powder room on the first floor. He states he has been ambulating in the room. Prior to
admission he was independent with ambulation and adls. He does not have any DME in the home. He has a prescription plan and uses [facility]. His spouse will be home to assist in his care if needed. Medical work-up in progress. The discharge
plan is to return home with his spouse and a home visit by the Transitional Care Nurse when medically stable.
[2024-10-12 10:22] VITALS: BP 130/66
[2024-10-12 10:29] VITALS: BP 151/57
[2024-10-12 10:50] VITALS: BP 130/66; BP 151/57; PULSE 104; O2SAT 98
[2024-10-12 14:01] VITALS: BP 118/85
--- NOTE | 2024-10-12 15:25 | PTCARENOTE ---
Pt seen by Dipika Kenney NP and . Telemetry and IV device removed. Discharge instructions reviewed with pt and his regarding medications, activity and driving guidelines, wound care, scheduling 30 day ECHO, reporting cares and
concerns and follow up appt's. Excellent understanding verbalized. Pt escorted out via wheelchair and discharged to home.
== END 2024-10-12 15:15 | disposition home or self-care (01) | DRG 266 ==
LOC: IVU 07:35
PROVIDERS: ADMITTING PHYSICIAN Thoracic Surgery (Cardiothoracic Vascular Surgery); CONSULT PHYSICIAN Internal Medicine Cardiovascular Disease; FAMILY PHYSICIAN Internal Medicine; OTHER PHYSICIAN Internal Medicine Cardiovascular Disease
PROC: 02RF38Z Replacement of Aortic Valve with Zooplastic Tissue, Percutaneous Approach (ICD-10-PCS; 2024-10-11)
DX: I35.0 Nonrheumatic aortic (valve) stenosis (principal); Z00.6 Encounter for examination for normal comparison and control in clinical research program; I50.43 Acute on chronic combined systolic (congestive) and diastolic (congestive) heart failure; I11.0 Hypertensive heart disease with heart failure; E78.1 Pure hyperglyceridemia; R73.03 Prediabetes; K74.60 Unspecified cirrhosis of liver; K80.20 Calculus of gallbladder without cholecystitis without obstruction; N52.9 Male erectile dysfunction, unspecified; F17.210 Nicotine dependence, cigarettes, uncomplicated; Z79.82 Long term (current) use of aspirin; Z79.899 Other long term (current) drug therapy; Z90.49 Acquired absence of other specified parts of digestive tract
CPT/HCPCS: 93308; 33361; 36415; 71045; 71046; 80048; 80053; 81003; 81015; 82248; 83036; 83735; 83880; 85025; 85027; 85610; 85730; 86803; 86850; 86900; 86901; 87070; 93005; 93321; 93325; C1760; C1769; C1894; Q9967

== ENCOUNTER 2024-11-12 10:06 | Outpatient (RCR) | payer MEDICARE, SELFPAY | END 2024-11-12 23:59 | disposition home or self-care (01) | LOC: CRHB 10:06 | PROVIDERS: ATTENDING PHYSICIAN Internal Medicine Cardiovascular Disease | DX: Z95.4 Presence of other heart-valve replacement (principal) | CPT/HCPCS: G0422; G0423 ==

== ENCOUNTER → 2024-11-13 10:05 | Outpatient (REF) | payer MEDICARE, SELFPAY | LOC: RCS 10:05 | PROVIDERS: ATTENDING PHYSICIAN Internal Medicine Cardiovascular Disease; FAMILY PHYSICIAN Internal Medicine | DX: I35.0 Nonrheumatic aortic (valve) stenosis (principal) | CPT/HCPCS: 93306 ==

== ENCOUNTER 2024-12-12 09:40 | Outpatient (RCR) | payer MEDICARE, SELFPAY | END 2024-12-12 23:59 | disposition home or self-care (01) | LOC: CRHB 09:40 | PROVIDERS: ATTENDING PHYSICIAN Internal Medicine Cardiovascular Disease | DX: Z95.4 Presence of other heart-valve replacement (principal) | CPT/HCPCS: G0422; G0423 ==

== ENCOUNTER → 2025-01-08 07:24 | Outpatient (REF) | payer MEDICARE, SELFPAY ==
[2025-01-08 08:40] LABS: ALT (SGPT) 36 U/L (0-50); AST (SGOT) 47 U/L (17-59); Albumin 4.2 g/dl (3.5-5.0); Alkaline Phosphatase 61 U/L (38-126); Blood Urea Nitrogen 12 mg/dl (9-20); Calcium 9.6 mg/dl (8.4-10.2); Carbon Dioxide 27 mmol/L (22-30); Chloride 109 mmol/L (98-107); Glucose 106 mg/dl (70-99); HDL Cholesterol 41 mg/dl; LDL Cholesterol, Calculated 102 mg/dl; Potassium 4.6 mmol/L (3.5-5.1); Sodium 139 mmol/L (135-145); Total Protein 7.3 g/dl (6.3-8.2); Very Low Density Lipoprotein 63 mg/dl (0-30); eGFR > 60.00
[2025-01-08 08:41] LABS: Glycohemoglobin (HgbA1c) 6.0 % (4.0-5.6)
== END ==
LOC: REG 07:24
PROVIDERS: ATTENDING PHYSICIAN Nurse Practitioner Adult Health; FAMILY PHYSICIAN Internal Medicine
DX: I10 Essential (primary) hypertension (principal); R73.03 Prediabetes; E78.1 Pure hyperglyceridemia
CPT/HCPCS: 36415; 80053; 80061; 83036

== ENCOUNTER 2025-01-11 09:50 | Outpatient (RCR) | payer MEDICARE, SELFPAY | END 2025-01-11 23:59 | disposition home or self-care (01) | LOC: CRHB 09:50 | PROVIDERS: ATTENDING PHYSICIAN Internal Medicine Cardiovascular Disease | DX: Z95.4 Presence of other heart-valve replacement (principal) | CPT/HCPCS: G0422; G0423 ==

== ENCOUNTER 2025-02-08 10:59 | Outpatient (RCR) | payer MEDICARE, SELFPAY | END 2025-02-11 08:07 | disposition home or self-care (01) | LOC: CRHB 10:59 | PROVIDERS: ATTENDING PHYSICIAN Internal Medicine Cardiovascular Disease; FAMILY PHYSICIAN Internal Medicine | DX: Z95.4 Presence of other heart-valve replacement (principal) | CPT/HCPCS: G0422; G0423 ==